=== PATIENT | male | born 1955 | race Caucasian/White ===

== ENCOUNTER 2020-02-16 13:16 | Emergency (ER) | payer OTHER ==
[~2020-02-16] VITALS: Ht 180.3 cm; Wt 99.8 kg
[~2020-02-16 13:16] MED LIST: ASPIRIN325 PO; KEFLEX500 MG PO; LISINOPRIL2.5 M1 PO; NORCO 5-325 TA1 EACH PO; PREDNISONE 20 M20 M1 PO; PROTONIX40 M1 PO
[2020-02-16 13:20] VITALS: BP 151/67
[2020-02-16] MEDS ORDERED: CIPROFLOXIN HC2.5 M1 OTIC (14:02)
== END 2020-02-16 14:05 | disposition home or self-care (01) ==
LOC: M.ERS 13:16
DX: T16.2XXA Foreign body in left ear, initial encounter (principal); F17.200 Nicotine dependence, unspecified, uncomplicated; I10 Essential (primary) hypertension; Z98.890 Other specified postprocedural states; Y92.89 Other specified places as the place of occurrence of the external cause